=== PATIENT | female | born 1950 ===

== ENCOUNTER 2023-12-11 11:00 | Inpatient (IN) | payer OTHER ==
[~2023-12-11] VITALS: Ht 167.6 cm; Wt 70.8 kg
[2023-12-11] MEDS ORDERED: LEVO-T25 MCG PO (13:59)
[2023-12-11] MEDS ORDERED: AMLODIPINE BESYL5 MG PO (13:59)
[2023-12-11] MEDS ORDERED: ZOCOR20 MG PO (13:59)
[2023-12-11] MEDS ORDERED: PROTONIX40 MG PO (13:59)
[2023-12-11] MEDS ORDERED: DICYCLOMINE HCL10 MG PO (14:00)
[2023-12-11] MEDS ORDERED: PEPCID40 MG PO (14:00)
[2023-12-22] MEDS ORDERED: CEFAZOLIN SODIUM 1,000 MG VIAL ONE ×2 (06:21→11:17)
[2023-12-22] MEDS ORDERED: TRANEXAMIC ACID 100MG/1ML (1000MG) AMPUL IV ONE ×3 (06:21→09:00)
[2023-12-22] MEDS ORDERED: BUPIVACAINE HCL/PF 0.5% 30ML ML ONE (07:20)
[2023-12-22] MEDS ORDERED: KETOROLAC TROMETHAMINE 30 MG VIAL ONE (07:20)
[2023-12-22] MEDS ORDERED: METOCLOPRAMIDE HCL 5 MG/ML VIAL ONE (07:20)
[2023-12-22] MEDS ORDERED: LIDOCAINE HCL 1%/Epi 20ML VIAL IJ ONE ×2 (07:21→08:45)
[2023-12-22] MEDS ORDERED: VANCOMYCIN HCL 1,000 MG VIAL ONE (07:21)
[2023-12-22] MEDS ORDERED: ZOLPIDEM TARTRA10 MG (07:56)
[2023-12-22] MEDS ORDERED: CEFAZOLIN SODIUM 1,000 MG VIAL IV ONE (08:45)
[2023-12-22] MEDS ORDERED: KETOROLAC TROMETHAMINE 60 MG VIAL IM ONE (08:45)
[2023-12-22] MEDS ORDERED: BUPIVACAINE HCL 30 ML VIAL IJ ONE (08:45)
[2023-12-22] MEDS ORDERED: ISOPROPYL ALCOHOL 30 ML OUNCE TOP ONE (08:45)
[2023-12-22] MEDS ORDERED: MORPHINE SULFATE 4 MG/ML VIAL IV ONE (08:45)
[2023-12-22] MEDS ORDERED: OxyCODONE HCL/APAP UD (PERCOCET) PO PRN (09:30)
[2023-12-22] MEDS ORDERED: ONDANSETRON HCL 2 MG/ML VIAL IV PRN (09:30)
[2023-12-22] MEDS ORDERED: MORPHINE SULFATE 4 MG/ML CARTRIDGE IV SCH (12:00)
[2023-12-22] MEDS ORDERED: CEFAZOLIN SODIUM 1,000 MG VIAL IV SCH (12:00)
[2023-12-22] MEDS ORDERED: GABAPENTIN 100 MG CAPSULE PO SCH (21:00)
[2023-12-22] MEDS ORDERED: ORPHENADRINE CITRATE 100 MG TABLET PO SCH (21:00)
[2023-12-23 06:13] LABS: HEMATOCRIT 33.9 % (36.0-45.00); HEMOGLOBIN 11.6 g/dL (12.0-15.00); MEAN CELL VOLUME 87.1 fL (80.00-100.00); MEAN CORPUSCULAR HEMOGLOBIN 29.7 pg (27.00-32.0); MEAN CORPUSCULAR HGB CONC 34.1 g/dl (32.0-36.0); PLATELET COUNT 223 K/uL (150-450); RED CELL DISTRIBUTION WIDTH 13.4 % (11.5-14.5)
[2023-12-23] MEDS ORDERED: ENOXAPARIN SODIUM 30 MG/0.3 ML SYRINGE SUBCUTANEO SCH (09:00)
[2023-12-23] MEDS ORDERED: VITAMIN B COMPLEX 1 EACH PO SCH (13:48)
[2023-12-23] MEDS ORDERED: SOD FERRIC GLUC COMPLX/SUCROSE 62.5 MG/5 ML AMPUL IV SCH (13:48)
[2023-12-23] MEDS ORDERED: Cyanocobalamin/Mecobalamin 1 TAB.SL SL SCH (13:49)
[2023-12-24 06:54] LABS: HEMATOCRIT 32.3 % (36.0-45.00); MEAN CELL VOLUME 87.3 fL (80.00-100.00); MEAN CORPUSCULAR HEMOGLOBIN 29.8 pg (27.00-32.0); MEAN CORPUSCULAR HGB CONC 34.2 g/dl (32.0-36.0); PLATELET COUNT 177 K/uL (150-450); RED CELL DISTRIBUTION WIDTH 13.3 % (11.5-14.5)
[2023-12-24] MEDS ORDERED: AMLODIPINE BESYLATE 5 MG TABLET PO SCH (12:11)
[2023-12-25] MEDS ORDERED: OxyCODONE HCL/APAP UD (PERCOCET) PO PRN (09:15)
[2023-12-25] MEDS ORDERED: NORFLEX100MG PO (10:16)
[2023-12-25] MEDS ORDERED: OXYC1TAB9 PO (10:16)
[2023-12-25] MEDS ORDERED: GABAPENTIN100 MG PO (10:16)
[2023-12-25] MEDS ORDERED: XARELTO10 MG PO (10:18)
== END 2023-12-25 14:24 | DRG 470 ==
LOC: O/R 12-22 05:15 → SURG 12-22 05:15 → SURH 12-22 07:00 → SURG 12-22 10:38 → SURH 12-22 11:00 → SURG 12-25 14:24
PROVIDERS: ADMIT Orthopaedic Surgery; ATTEND Orthopaedic Surgery
PROC: 0SRC0JZ Replacement of Right Knee Joint with Synthetic Substitute, Open Approach (ICD-10-PCS; principal; 2023-12-22 07:00)
DX: M17.11 Unilateral primary osteoarthritis, right knee (principal); D62 Acute posthemorrhagic anemia; M85.661 Other cyst of bone, right lower leg; I10 Essential (primary) hypertension